=== PATIENT | male | born 1975 | race Asian ===

== ENCOUNTER 2017-07-07 17:30 | Emergency (ER) | payer SELFPAY ==
[~2017-07-07] VITALS: Ht 172.7 cm; Wt 74.8 kg
--- NOTE | 2017-07-07 17:30 | NUR ---
BIBRA [id number]: FOUND PASSED OUT IN CAR OUTSIDE BAR, ETOH INTOXICATION
[2017-07-07] MEDS ORDERED: LORAZEPAM 1 MG TABLET PO ONE (18:00)
[2017-07-07] MEDS ORDERED: LORAZEPAM 1 MG TABLET ONE (18:03)
[2017-07-07] MEDS ORDERED: diphenhydrAMINE HCL 50 MG/ML VIAL ONE (18:16)
[2017-07-07] MEDS ORDERED: LORAZEPAM INJ 2 MG/ML VIAL ONE (18:16)
[2017-07-07] MEDS ORDERED: HALOPERIDOL LACTATE INJ 5 MG/ML VIAL ONE (18:16)
[2017-07-07] MEDS ORDERED: LORAZEPAM INJ 2 MG/ML VIAL IM ONE (18:30)
[2017-07-07] MEDS ORDERED: HALOPERIDOL LACTATE INJ 5 MG/ML VIAL IM ONE (18:30)
[2017-07-07] MEDS ORDERED: diphenhydrAMINE HCL 50 MG/ML VIAL IM ONE (18:30)
--- NOTE | 2017-07-07 18:33 | NUR ---
BENNETT PHONE NUMBER [phone]
--- NOTE | 2017-07-07 18:56 | NUR ---
PT STILL AGITATED NOT TAKEN TO CT YET MD MELENDREZ
--- NOTE | 2017-07-07 19:07 | NUR ---
PT OFF TO CT
--- NOTE | 2017-07-07 19:12 | NUR ---
PT BACK FROM CT
--- NOTE | 2017-07-07 20:24 | NUR ---
PT COMFORTABLE SLEEPING IN BED
--- NOTE | 2017-07-07 20:41 | NUR ---
PT OK TO D/C WHEN ABLE TO WALK. IS IN WAITING ROOM TRYING TO PLAN ON WAY TO GET HOME
--- NOTE | 2017-07-07 21:16 | NUR ---
PT STABLE SLEEPING. FAMILY HAS TRIED TO WAKE HIM UP BUT TOO SLEEPY
[2017-07-07 23:29] VITALS: BP 119/80
== END 2017-07-07 23:30 | disposition home or self-care (01) ==
LOC: EDBD 17:35 → ER 17:35
DX: F10.129 Alcohol abuse with intoxication, unspecified (principal)
CPT/HCPCS: 70450; 96372 ×3; 99284; A4606; J1200; J1630; J2060; Z7610